=== PATIENT | female | born 1995 | race Two or more races ===

== ENCOUNTER 2019-03-28 00:08 | Emergency (ER) | payer OTHER ==
[~2019-03-28] VITALS: Ht 170.2 cm; Wt 63.5 kg
[2019-03-28 00:28] VITALS: BP 95/65
[2019-03-28] MEDS ORDERED: ONDANSETRON 4 MG TAB.RAPDIS ONE ×2 (00:58→01:11)
[2019-03-28] MEDS ORDERED: HYDROCODONE/APAP 5/325MG 1 EACH TABLET ONE (00:58)
[2019-03-28] MEDS ORDERED: ONDANSETRON 4 MG TAB.RAPDIS SL ONE (01:00)
[2019-03-28] MEDS ORDERED: HYDROCODONE/APAP 5/325MG 1 EACH TABLET PO ONE (01:00)
== END 2019-03-28 03:12 | disposition home or self-care (01) ==
LOC: ER 00:08
DX: M25.531 Pain in right wrist (principal); M79.641 Pain in right hand; F17.200 Nicotine dependence, unspecified, uncomplicated; V19.49XA Pedal cycle driver injured in collision with other motor vehicles in traffic accident, initial encounter; Y93.89 Activity, other specified; Y92.488 Other paved roadways as the place of occurrence of the external cause; Y99.8 Other external cause status
CPT/HCPCS: 73110; 73130; 99283; Q0162 ×2